=== PATIENT | male | born 1990 | race Caucasian/White ===

== ENCOUNTER 2021-01-28 18:21 | Emergency (ER) | payer OTHER ==
[~2021-01-28] VITALS: Ht 167.6 cm; Wt 59.0 kg
[~2021-01-28 18:21] MED LIST: ACYCLOVIR 400400 MG PO; ROBAXIN500 MG PO
[2021-01-28] MEDS ORDERED: NEOMYCIN-POLY-7.5 ML OPHTHALMIC (20:00)
[2021-01-28 20:02] VITALS: BP 102/64
== END 2021-01-28 20:02 | disposition home or self-care (01) ==
LOC: M.ERS 18:21
DX: T15.02XA Foreign body in cornea, left eye, initial encounter (principal); Z91.018 Allergy to other foods; X58.XXXA Exposure to other specified factors, initial encounter; Y93.9 Activity, unspecified; Y92.89 Other specified places as the place of occurrence of the external cause; Y99.8 Other external cause status

== ENCOUNTER 2021-03-07 13:25 | Emergency (ER) | payer OTHER ==
[~2021-03-07] VITALS: Ht 167.6 cm; Wt 59.0 kg
[~2021-03-07 13:25] MED LIST changes: +NEOMYCIN-POLY-7.5 ML OPHTHALMIC
[2021-03-07 14:57] VITALS: BP 120/82
== END 2021-03-07 14:58 | disposition home or self-care (01) ==
LOC: M.ERS 13:25
DX: S61.412A Laceration without foreign body of left hand, initial encounter (principal); Z88.8 Allergy status to other drugs, medicaments and biological substances; Z91.018 Allergy to other foods; W26.8XXA Contact with other sharp object(s), not elsewhere classified, initial encounter; Y93.89 Activity, other specified; Y92.89 Other specified places as the place of occurrence of the external cause; Y99.8 Other external cause status